=== PATIENT | male | born 1955 | race Caucasian/White ===

== ENCOUNTER 2017-03-15 06:33 | Inpatient (IN) ==
[2017-03-15] MEDS ORDERED: Lidocaine -MPF 1% 2 ML VIAL ID ONE (06:46)
[2017-03-15] MEDS ORDERED: Levofloxacin 500 MG/100 ML 500 MG/100 ML BAG IVPB ONE (06:46)
--- NOTE | 2017-03-15 06:51 | History & Physical Report ---
Date of Encounter: 03/15/17 Time of Encounter: 06:50 24 Hour HP Update - Instructions Instructions: If the History and Physical is less than 30 days old and was completed prior to A.M. admission and or procedure and has NOT been updated on calendar day of procedure please complete this update prior to performing procedure. - Update Patient reports changes in Medical Condition: No Changes in examination, assessment, or condition: No Changes in Medication: No Preop tests/diagnostics Reviewed: Yes Surgery Remains Indicated: Yes Consent for Planned Operative Procedure(s) Verified: Yes - Pre-Operative Checklist Preoperative Checklist Indicated: Yes Prophylactic Antibiotic Ordered: Yes Home Medications Include Beta Sha: No Is VTE Prophylaxis Indicated?: Yes
[2017-03-15] MEDS: Ringers Solution, Lactated 1,000 ML IVC SCH ×2 (07:09→12:41)
[2017-03-15] MEDS ORDERED: *HR* Propofol 200 MG/20 ML VIAL IVP ONE (07:11)
[2017-03-15] MEDS ORDERED: *HR* FentaNYL (PF) 100 MCG/2 ML VIAL ONE ×2 (07:11→08:27)
[2017-03-15] MEDS ORDERED: Lidocaine -MPF 2% 2 ML VIAL ONE (07:12)
[2017-03-15] MEDS ORDERED: Lidocaine -MPF 4% 5 ML AMPUL ONE (07:12)
[2017-03-15] MEDS ORDERED: Dexamethasone 4 MG/ML VIAL ONE (07:12)
[2017-03-15] MEDS ORDERED: *HR* Rocuronium Bromide 50 MG/5 ML VIAL ONE ×2 (07:12→09:12)
[2017-03-15] MEDS ORDERED: *HR* Succinylcholine 200 MG/10 ML VIAL IVP ONE (07:12)
[2017-03-15] MEDS ORDERED: Ondansetron 4 MG/2 ML VIAL ONE (07:12)
[2017-03-15] MEDS ORDERED: *HR* Midazolam HCl 2 MG/2 ML VIAL ONE (07:15)
[2017-03-15] MEDS ORDERED: Famotidine 20 MG/2 ML VIAL IVP ONE (07:19)
[2017-03-15] MEDS ORDERED: Gabapentin 300 MG CAPSULE PO ONE (07:20)
[2017-03-15] MEDS ORDERED: *HR* Phenylephrine 10 MG/ML VIAL ONE (07:24)
--- NOTE | 2017-03-15 07:31 | Anesthesia Evaluation PreOp ---
Date of Encounter: 03/15/17 Time of Encounter: 07:30 - Past History Planned Operation: Robotic Assisted Radical Prostatectomy Cardiac History: HTN Pulmonary History: Denies Any Significant HX RIPENING ROOM OPERATOR History: Denies Any Significant HX Other Medical History: Denies Any Significant HX Anesthesia History: No Prior Anesthetic Complications Alcohol Use: occasionally, recent Drug use: none Medications and Allergies 3 Allergy/AdvReac Type Severity Reaction Status Date / Time ampicillin Allergy Rash Verified 03/09/17 08:40 - Meds/Allergy Pre-op Review Medications Reviewed: Yes Allergies Reviewed: Yes Beta Blockers on Current Med List: No Anesthesia Results - Labs Laboratory Tests 03/09/17 03/09/17 08:52 08:52 Hgb 15.2 Hct 44.4 Plt Count 232 Sodium 137 Potassium 4.6 H BUN 15 Creatinine 1.30 H - Imaging EKG: report reviewed (SR possible old AR) Anesthesia Exam O2 Sat Height 1.73 m Height 1.73 m Height 1.73 m Weight 91.172 kg Weight 91.172 kg Weight 91.172 kg O2 Sat by Pulse Oximetry 98 Vital Signs Temp Pulse Resp BP Pulse Ox 98.1 F 65 18 143/103 98 03/15/17 07:10 03/15/17 07:10 03/15/17 07:10 03/15/17 07:10 03/15/17 07:10 Height: 58 Weight: 200 lbs NPO (# of Hours): MN Pain Scale: 0 - HEENT Pupil (Motor): Pupils equal, EOMI Mallampati: II Teeth: Edentulous (no upper teeth), Poor dentition Oral Opening: Less than or equal to 3 - RIPENING ROOM OPERATOR LOC: Oriented RIPENING ROOM OPERATOR Motor: Normal RUE, Normal LUE, Normal RLE, Normal LLE, Normal Face RIPENING ROOM OPERATOR Sensory: Normal: RUE, LUE, RLE, LLE, Face - Cardiac Rhythm: Regular Murmur: None JVD: No Carotid Bruit: No - Pulmonary Breath Sounds: bilateral Clear Respiratory Effort: Symmetrical Anesthesia Assess/Plan ASA Score: 2 Modified [place] Scale for Level of Consciousness: Cooperative, oriented, and tranquil Anesthetic Plan: General Monitoring Plan: Standard Monitors Recovery Plan: PACU (Discussed GA, agrees to proceed)
[2017-03-15] MEDS ORDERED: EPHEDrine 50 MG/ML VIAL ONE (08:05)
[2017-03-15] MEDS ORDERED: *HR* Remifentanil 2 MG VIAL IVP ONE ×2 (08:32→10:54)
[2017-03-15] MEDS ORDERED: *HR* HYDROmorphone 2 MG/ML SYRINGE ONE (11:35)
[2017-03-15] MEDS ORDERED: Neostigmine Methylsulfate 3 MG/3 ML SYRINGE ONE (11:43)
--- NOTE | 2017-03-15 12:04 | Operative Note ---
Date of procedure: 03/15/17 Pre-op diagnosis: Prostate cancer Post-op diagnosis: same Procedure: Robotic-assisted radical prostatectomy with bilateral pelvic lymph node dissection Implants: 20 Sudanese Jaimes catheter. 19 Sudanese Piyush drain. Complications: None. Anesthesia: LAURA Surgeon: Blanco Rosa Estimated blood loss (cc): 150 Specimen: prostate, lymph nodes, fat over top prostate Condition: stable Disposition: PACU Procedure in Detail: INDICATIONS FOR PROCEDURE: Mr. Hughes is a 61 year-old male with history of elevated PSA. He was found on prostate needle biopsy to have [place] 4+3 prostate cancer along the left side. He is now presenting for robotic assisted prostatectomy. He was informed of the risks of the procedure including but not limited to bleeding, infection, injury to other structures, need for further procedures, lymphocele, urinary incontinence, urine leak, erectile dysfunction, bladder neck contracture, rectal injury, and the risk of anesthesia. He is willing to proceed. PROCEDURE: After informed consent was obtained, the patient was taken to the operating room, placed supine on the table. He was given IV antibiotics for antibiotic coverage. He had MARILIN's and SCD's placed on the lower extremities for DVT prophylaxis. Induction of general anesthesia was performed. The arms were tucked and he was placed in lithotomy position. He was secured to the OR table with padding. A 16 Sudanese Jaimes catheter was placed. A 10mm incision was made just infraumbilically. The Veress needle was introduced. The water drop test passed. Pneumoperitoneum was initiated with low pressures initially. The abomen was insufflated. I then placed a 12mm camera port through this incision using the visual obturator and the 8 mm robotic camera.. Once the trocar was in place, the camera for the robot was placed in the field and remaining trocars were placed. Robotic ports were placed x 2 on the right side. We placed another robotic port to the left of the umbilicus. We also placed a 12mm port in the left lower quadrant. Once all trocars were in place, the robot was docked to the patient and the monopolar scissors were placed on the right robotic arm. The bipolar [place] was in the left robotic arm and the Prograsp in the 4th arm. The left colon was dissected off the pelvic sidewall to release adhesions. The bowel was then retracted with the fourth arm. The medial umbilical ligaments were cauterized and the bladder was taken down off the anterior abdominal wall using electrocautery. The bladder was then grasped with a 4th arm and retracted cephalad. I proceeded perform a pelvic lymph node dissection starting on the left side. The external iliac vein was identified. The node packet was dissected down to [place]'s node. The posterior dissection moved to the obturator nerve. The packet was then clipped distally and proximally. The specimen was sent to pathology. The lymph nodes are palpably normal. An identical procedure was performed on the right side. The lymph nodes were palpably normal on the right side as well. We then swept the periprostatic fat off the prostate as well as the pelvic sidewall. This fat was sent separately as a specimen. We then incised the endopelvic fascia on both sides and carried the incision up to the prostatic apex, sweeping the levator fibers off of the prostate. The puboprostatic ligaments were carefully incised. We then placed an 0 Vicryl suture through the dorsal venous complex and tied it down with a surgeon's knot. Once the dorsal venous complex was ligated, we then turned our attention to the bladder neck which was incised with the monopolar cautery until the catheter was visualized at the bladder neck. The balloon of the catheter was deflated. It was brought out of the bladder and retracted anteriorly using the fourth arm. The posterior bladder neck was then opened using the cautery until the space between the prostate and the bladder neck was visualized. The posterior aspect of the prostate was dissected down carefully using electrocautery. The vas deferens and seminal vesicals were encountered. The vas deferens were cauterize and divided. We pulled the seminal vesicles up into the field to help retract the prostate in cephalad direction. Denonvillier's fascia was dissected off the prostate posteriorly. We then began releasing the lateral prostatic fascia, first on the left side. Given that his cancer was on the left side I did not do an aggressive nerve spare. I carefully divided the pedicles using multiple Hem-o-harpreet clips to clip the larger prostatic pedicle. On the right side the neurovascular bundle was released sharply. The pedicles were divided using multiple Hem-o-harpreet clips. I was unable to dissect the neurovascular bundle off the posterior aspect of the prostate leaving the right- sided nerve bundle. Once both neurovascular bundles were released, the posterior attachments were released sharply between the prostate and the rectum. We then used the 4th arm to place the prostate on stretch in cephalad direction. We then transected the dorsal venous complex. The suture came out. I then oversewed the dorsal venous complex using a #1 Vicryl. Then, with cold scissors Icut across the urethra until the catheter was visualized. The catheter was removed and the posterior urethra was transected. The prostate was then placed in an Endo Catch bag. The pedicles were identified and cautery was utilized to minimize any bleeding and control it. The urethral to blader anastomosis was then performed with a 3-0 V-Harpreet suture in running fashion starting at 6 o'clock position. With two sutures tied together we then ran the right side up about shelter. The left side was then run around until the bladder was reanastamosed to the urethra. The final 20 Sudanese catheter was placed into the bladder and balloon filled with 15 mL of sterile water. The bladder was irrigated. No leak was identified. A 19 Sudanese Piyush drain was placed through the trocar down into the pelvis. The trocar was removed and drain sewn in place with a suture. The robot was then undocked from the patient. I was able to place my finger from the camera wound across the abdomen to grasp the Endocatch bag and bring the suture to the umbilical wound. After extending the incision slightly with the electrocautery the EndoCatch bag was then removed from the camera port. The abdominal fascia was then closed in running fashion with 0 Vicryl suture. All incisions were instilled with 0.25 % Marcaine. The remaining trocars were removed under direct vision and all incisions were then closed with 4-0 Monocryl in subcuticular fashion. The patient was then awakened from general anesthesia and brought to the recovery room in good condition. All sponge, needle, and instrument counts were correct.
[2017-03-15] MEDS ORDERED: *HR* HYDROmorphone (PF) 1 MG/ML SYRINGE ONE (12:27)
[2017-03-15] MEDS: *HR* HYDROmorphone (PF) 1 MG/ML SYRINGE IVP PRN ×6 (12:29→20:40)
--- NOTE | 2017-03-15 13:05 | Anesthesia Evaluation Post Op ---
Date of Encounter: 03/15/17 Time of Encounter: 13:00 - Vital Signs Vital Signs: Vital Signs/O2 Sat/Glucose, Most Current Temp Pulse Resp BP Pulse Ox 03/15/17 12:57 63 16 134/91 100 03/15/17 12:47 65 16 140/97 100 03/15/17 12:37 98.1 F 71 16 136/89 100 03/15/17 12:27 68 16 129/95 100 03/15/17 12:17 79 18 129/87 100 03/15/17 12:07 97.4 F L 89 18 110/77 98 - Lungs Lungs: Clear Ascult./Percussion - Airway Airway: Non-obstructed - Cardiovascular Regular Rate - Mental Status Mental Status: Alert & Oriented, Answers Appropriately - Pain Pain Scale: 0 - Nausea Vomiting Nausea Vomiting: Not Present - Hydration Hydration: Ice chips - Discharge PostOp Status: Transfer Patient to floor
[2017-03-15] MEDS ORDERED: Naloxone 0.4 MG/ML INJ IVP PRN (13:34)
[2017-03-15] MEDS ORDERED: Acetaminophen 325 MG TABLET PO PRN (13:34)
[2017-03-15] MEDS: 0.9 % Sodium Chloride 1,000 ML IVC SCH (14:12)
[2017-03-15] MEDS: *HR* Heparin 5,000 UNIT/ML VIAL SQ SCH (16:06)
[2017-03-16] MEDS: *HR* HYDROmorphone (PF) 1 MG/ML SYRINGE IVP PRN ×4 (01:06→21:26)
[2017-03-16] MEDS: 0.9 % Sodium Chloride 1,000 ML IVC SCH (01:11)
[2017-03-16] MEDS: *HR* Heparin 5,000 UNIT/ML VIAL SQ SCH ×2 (05:50→17:07)
[2017-03-16 07:28] LABS: Mean Corpuscular HGB Conc 32.9 g/dL (31.6-35.5); Mean Corpuscular Volume 91.3 fL (83.0-100.0); Mean Platelet Volume 9.9 fL (9.4-12.4); Platelet Count 189 K/mcL (140-400); Red Blood Count 4.16 M/mcL (4.19-5.50); Red Cell Distribution Width 13.2 % (11.5-14.5)
--- NOTE | 2017-03-16 07:32 | Urology Progress Note ---
Date of Encounter: 03/16/17 Time of Encounter: 07:30 - Assessment and Plan (1) Prostate cancer Current Visit: Yes Status: Acute Assessment and plan: Postop day #1 status post robotic-assisted radical prostatectomy. He is doing well. 1. Clear liquid diet. We'll advance to solid food if he tolerates this. 2. Ambulate 3 times per day. 3. For prophylaxis continue heparin subcutaneous. 4. Labs are pending. 5. We will reassess later today. If he is tolerating diet and his pain is controlled, then I will consider discharge home. Progress Note Narrative: Postoperative day #1 status post robotic-assisted radical prostatectomy and bilateral pelvic lymph node dissection. He is doing well. His pain is well- controlled. He is breathing well. Urine output was good overnight. KAMLA output has been low. Objective Initial Vital Signs Temp Pulse Resp BP Pulse Ox 98.1 F 65 18 143/103 98 03/15/17 07:10 03/15/17 07:10 03/15/17 07:10 03/15/17 07:10 03/15/17 07:10 - General physical appearance Present: well developed, well nourished, no distress - Respiratory Present: normal respiratory effort - Abdomen Present: soft (Appropriately tender. Incisions are clean, dry, and intact. KAMLA with scant serosanguineous fluid.) - Genitourinary Present: normal penis with no external lesions Urine Appearance: Present: Clear, Hematuria (Clear to light pink urine.) - VTE Documentation of Mechanical Device: Intermittent pneumatic compression device Consult Discharge Plan - Plan Referrals: NONE,PCP [Primary Care Provider] -
[2017-03-16 07:41] LABS: BUN/Creatinine Ratio 11 (6-26); Blood Urea Nitrogen 14 mg/dL (8-26); Calcium 8.7 mg/dL (8.6-10.8); Carbon Dioxide 25 mEq/L (19-29); Chloride 105 mEq/L (98-109); Glucose 117 mg/dL (70-99); Osmolality,Calculated 286 (280-300); Potassium 4.7 mEq/L (3.5-4.5); Sodium 137 mEq/L (136-145); eGFR For African Americans > 60 (> 60); eGFR For Non-African Americans 54 (> 60)
[2017-03-16] MEDS ORDERED: D5% in 0.45% NACL w KCl 20 MEQ/1,000 ML MLS IVC SCH (07:45)
[2017-03-16 07:46] LABS: Hemoglobin 12.5 g/dL (12.9-16.9)
[2017-03-16] MEDS: *HR* OxyCODONE Immed Rel 5 MG TABLET PO PRN ×2 (08:52→14:53)
--- NOTE | 2017-03-16 11:57 | Event Note ---
Date of Encounter: 03/16/17 Time of Encounter: 11:56 Patient noted some discomfort in his chest after eating. I ordered some omeprazole. He had an EKG which appeared unchanged. Troponin was normal. His chest pain is improved.
[2017-03-16] MEDS: D5% in 0.45% NACL 1,000 ML IVC SCH ×2 (12:35→21:21)
[2017-03-16] MEDS: Ondansetron 4 MG/2 ML VIAL IVP PRN (21:53)
[2017-03-17] MEDS: *HR* Promethazine 25 MG/ML VIAL IVP PRN (04:57)
[2017-03-17] MEDS: D5% in 0.45% NACL 1,000 ML IVC SCH ×2 (04:58→17:33)
[2017-03-17] MEDS: *HR* Heparin 5,000 UNIT/ML VIAL SQ SCH ×2 (05:04→17:34)
--- NOTE | 2017-03-17 07:09 | Urology Progress Note ---
Date of Encounter: 03/17/17 Time of Encounter: 07:06 - Assessment and Plan (1) Prostate cancer Current Visit: Yes Status: Acute Assessment and plan: Postoperative day #2 status post robotic cystoprostatectomy and bilateral pelvic lymph node dissection. 1. I will check a KAMLA creatinine. At the KAMLA creatinine is consistent with urine, and may need to retract the drain to minimize aspiration across the anastomosis. 2. I will continue to ambulate him. 3. Continue clear liquids as tolerated. 4. Continue inpatient stay until bowel function has improved. 5. Heparin for DVT prophylaxis. 6. I'll repeat labs today. Progress Note Narrative: Postop day 2 status post robotic system radical prostatectomy with bilateral pelvic lymph node dissection. Overnight he developed some nausea and threw up. A KAMLA creatinine yesterday evening was 1.13. His KAMLA output has increased to 420 mL overnight. Urine output has decreased slightly. His pain is well controlled. He is breathing well. His nausea has improved. Objective Initial Vital Signs Temp Pulse Resp BP Pulse Ox 98.1 F 65 18 143/103 98 03/15/17 07:10 03/15/17 07:10 03/15/17 07:10 03/15/17 07:10 03/15/17 07:10 - General physical appearance Present: well developed, well nourished, no distress - Respiratory Present: normal respiratory effort - Abdomen Present: tender, distended (Mild distention. Wounds are properly tender. Incisions are clean, dry, and intact. KAMLA with serous fluid.) - Genitourinary Urine Appearance: Present: Clear (Catheter placed. There is no evidence of kinking of the catheter.) - Labs 03/16/17 06:53 03/16/17 06:53 Diabetes panel 03/16/17 Range/Units 06:53 Sodium 137 (136-145) mEq/L Potassium 4.7 H (3.5-4.5) mEq/L Chloride 105 (98-109) mEq/L Carbon Dioxide 25 (19-29) mEq/L BUN 14 (8-26) mg/dL Creatinine 1.33 H (0.72-1.25) mg/dL Glucose 117 H (70-99) mg/dL Calcium 8.7 (8.6-10.8) mg/dL Calcium panel 03/16/17 Range/Units 06:53 Calcium 8.7 (8.6-10.8) mg/dL Pituitary panel 03/16/17 Range/Units 06:53 Sodium 137 (136-145) mEq/L Potassium 4.7 H (3.5-4.5) mEq/L Chloride 105 (98-109) mEq/L Carbon Dioxide 25 (19-29) mEq/L BUN 14 (8-26) mg/dL Creatinine 1.33 H (0.72-1.25) mg/dL Glucose 117 H (70-99) mg/dL Calcium 8.7 (8.6-10.8) mg/dL Adrenal panel 03/16/17 Range/Units 06:53 Sodium 137 (136-145) mEq/L Potassium 4.7 H (3.5-4.5) mEq/L Chloride 105 (98-109) mEq/L Carbon Dioxide 25 (19-29) mEq/L BUN 14 (8-26) mg/dL Creatinine 1.33 H (0.72-1.25) mg/dL Glucose 117 H (70-99) mg/dL Calcium 8.7 (8.6-10.8) mg/dL - VTE Documentation of Mechanical Device: Graduated compression elastic hosiery Consult Discharge Plan - Plan Referrals: NONE,PCP [Primary Care Provider] -
[2017-03-17] MEDS: Ketorolac 15 MG/ML VIAL IVP PRN ×2 (08:28→17:33)
[2017-03-17 10:22] LABS: Mean Corpuscular Hemoglobin 30.3 pg (28.0-33.3); Mean Corpuscular Volume 91.8 fL (83.0-100.0); Platelet Count 256 K/mcL (140-400); Red Blood Count 5.12 M/mcL (4.19-5.50); Red Cell Distribution Width 13.1 % (11.5-14.5)
[2017-03-17 10:23] LABS: Hemoglobin 15.5 g/dL (12.9-16.9)
[2017-03-17 10:29] LABS: BUN/Creatinine Ratio 9 (6-26); Blood Urea Nitrogen 12 mg/dL (8-26); Carbon Dioxide 22 mEq/L (19-29); Chloride 102 mEq/L (98-109); Glucose 137 mg/dL (70-99); Osmolality,Calculated 278 (280-300); Potassium 4.6 mEq/L (3.5-4.5); Sodium 133 mEq/L (136-145); eGFR For African Americans > 60 (> 60); eGFR For Non-African Americans 53 (> 60)
[2017-03-17 12:04] LABS: Calcium 9.9 mg/dL (8.6-10.8)
[2017-03-18] MEDS: *HR* HYDROmorphone (PF) 1 MG/ML SYRINGE IVP PRN (00:06)
[2017-03-18] MEDS: hydrALAZINE 10 MG TABLET PO PRN ×2 (00:06→20:21)
[2017-03-18] MEDS: D5% in 0.45% NACL 1,000 ML IVC SCH (02:06)
[2017-03-18] MEDS: *HR* Heparin 5,000 UNIT/ML VIAL SQ SCH ×2 (05:38→19:29)
--- NOTE | 2017-03-18 07:12 | Urology Progress Note ---
Date of Encounter: 03/18/17 Time of Encounter: 07:10 - Assessment and Plan (1) Prostate cancer Current Visit: Yes Status: Acute Assessment and plan: Postoperative day #3 status post robotic-assisted radical prostatectomy and bilateral pelvic lymph node dissection. 1. Remove the drain today. 2. Continue ambulation. 3. Gen. diet. 4. Continue Jaimes catheter. 5. We will see how his bowel function does and if he tolerates general diet. If he is doing well as afternoon, we can anticipate discharge home. Progress Note Narrative: Postoperative day #3 status post robotic-assisted radical prostatectomy and bilateral pelvic lymph node dissection. He is doing fairly well today. His pain is well-controlled. He is tolerating liquids. He passed some gas. KAMLA is still putting out serous fluid. A creatinine from the fluid was consistent with serum twice during this postoperative stay. Objective Initial Vital Signs Temp Pulse Resp BP Pulse Ox 98.1 F 65 18 143/103 98 03/15/17 07:10 03/15/17 07:10 03/15/17 07:10 03/15/17 07:10 03/15/17 07:10 - General physical appearance Present: well developed, well nourished, no distress - Respiratory Present: normal respiratory effort - Abdomen Present: soft, distended (Mildly distended with some tympany. Incisions are clean, dry, intact. KAMLA drain was serous fluid.) - Genitourinary Urine Appearance: Present: Clear - Labs 03/17/17 09:04 03/17/17 09:04 Diabetes panel 03/17/17 Range/Units 09:04 Sodium 133 L (136-145) mEq/L Potassium 4.6 H (3.5-4.5) mEq/L Chloride 102 (98-109) mEq/L Carbon Dioxide 22 (19-29) mEq/L BUN 12 (8-26) mg/dL Creatinine 1.36 H (0.72-1.25) mg/dL Glucose 137 H (70-99) mg/dL Calcium 9.9 (8.6-10.8) mg/dL Calcium panel 03/17/17 Range/Units 09:04 Calcium 9.9 (8.6-10.8) mg/dL Pituitary panel 03/17/17 Range/Units 09:04 Sodium 133 L (136-145) mEq/L Potassium 4.6 H (3.5-4.5) mEq/L Chloride 102 (98-109) mEq/L Carbon Dioxide 22 (19-29) mEq/L BUN 12 (8-26) mg/dL Creatinine 1.36 H (0.72-1.25) mg/dL Glucose 137 H (70-99) mg/dL Calcium 9.9 (8.6-10.8) mg/dL Adrenal panel 03/17/17 Range/Units 09:04 Sodium 133 L (136-145) mEq/L Potassium 4.6 H (3.5-4.5) mEq/L Chloride 102 (98-109) mEq/L Carbon Dioxide 22 (19-29) mEq/L BUN 12 (8-26) mg/dL Creatinine 1.36 H (0.72-1.25) mg/dL Glucose 137 H (70-99) mg/dL Calcium 9.9 (8.6-10.8) mg/dL - VTE Documentation of Mechanical Device: Graduated compression elastic hosiery Consult Discharge Plan - Plan Referrals: NONE,PCP [Primary Care Provider] -
[2017-03-18] MEDS: Ondansetron 4 MG/2 ML VIAL IVP PRN (08:11)
[2017-03-18] MEDS: *HR* Promethazine 25 MG/ML VIAL IVP PRN (10:39)
[2017-03-18] MEDS: Ketorolac 15 MG/ML VIAL IVP PRN (10:39)
[2017-03-19] MEDS: *HR* Heparin 5,000 UNIT/ML VIAL SQ SCH (05:36)
[2017-03-19 07:08] VITALS: BP 152/98
--- NOTE | 2017-03-19 07:17 | Discharge Summary ---
Date of Encounter: 03/19/17 Time of Encounter: 07:14 - Discharge Diagnosis (1) Prostate cancer Priority: Primary Status: Acute - Discharge Medications Prescriptions: Docusate [Colace] 100 mg PO BID #60 capsule Oxycodone HCl/Acetaminophen [Percocet 5-325 mg Tablet] 1 each PO Q6H PRN #20 tablet PRN Reason: Pain Home Medications: Lisinopril 30 mg PO DAILY 03/15/17 [History] Docusate [Colace] 100 mg PO BID #60 capsule 03/19/17 [Rx] Oxycodone HCl/Acetaminophen [Percocet 5-325 mg Tablet] 1 each PO Q6H PRN #20 tablet 03/19/17 [Rx] Allergies/Adverse Reactions: 3 Allergy/AdvReac Type Severity Reaction Status Date / Time ampicillin Allergy Rash Verified 03/15/17 15:33 Date of admission: 03/15/17 13:23 Primary care physician: PCP NONE Consults: 03/16/17 07:33 Consult to Physical Therapy [CONS] Routine Comment: Evaluate, develop and implement POC Reason for Consult: Ambulation. Anticipated date of discharge: 03/19/17 - Patient Status Disposition: Home, Self-Care Condition: Good Functional capacity at discharge: independent ambulation Overall status at discharge: patient is progressing back to baseline - Discharge Instructions Follow Up With: Blanco Rosa MD [Partnered Physician] - (Next week. Cystogram prior. Voiding trial afterwards.) Additional Instructions: Please provide catheter care instructions - leg bag, night bag, leg strap and how to change the bags appropriately. 1. No heavy lifting greater than 20 pounds x 2 weeks. 2. No tub baths x 2 weeks. 3. May shower. 4. He should follow up next week for postoperative check. 5. He should return for any fevers, chills, nausea, vomiting, or significant swelling/ecchymosis. - Diet and Activity Activity: increase activity as tolerated Diet: advance to your usual diet - Hospital Course Hospital course: Mr. Hughes is a 61 year old male who is a history of prostate cancer. He underwent a robotic-assisted radical prostatectomy on March 15, 2017. He had slow return of bowel function. He had large volume output from his KAMLA drain. I had checked KAMLA creatinines twice during his stay and it was consistent with serum. The KAMLA was removed. On March 18, 2017 he moved his bowels and was feeling better. His nausea had resolved and he was tolerating diet. His Jaimes catheter was draining clear urine. On March 19 2017 he was discharged home. - Time Spent with Patient Total time spent providing and/or coordinating discharge services: Less than 30 minutes Exam Initial Vital Signs Temp Pulse Resp BP Pulse Ox 98.1 F 65 18 143/103 98 03/15/17 07:10 03/15/17 07:10 03/15/17 07:10 03/15/17 07:10 03/15/17 07:10 - General physical appearance Present: well developed, well nourished, no distress - Eyes Absent: icteric - ENT Present: normal nares - Neck Present: trachea midline - Respiratory Present: normal respiratory effort - Cardiovascular Cardiovascular exam IM: RRR - Abdomen Abdomen: Present: soft - VTE Documentation of Mechanical Device: Graduated compression elastic hosiery
--- NOTE | 2017-03-19 15:42 | Electrocardiograph Report ---
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
== END 2017-03-19 10:30 | disposition home or self-care (01) | DRG 708 ==
LOC: SAMDAY 06:33 → 3ANU 13:23
PROVIDERS: ADMIT Urology; ATTEND Urology